=== PATIENT | female | born 1985 | race Caucasian/White ===

== ENCOUNTER → 2016-09-03 | Outpatient (CLI) | payer MEDICAID ==
[~2016-09-03] MED LIST: CARB200C3 PO; ESCI10TA PO; LORA0.5T PO; SULF-106 PO; TRAZ-28 PO; [UNRECOGNIZED DRUG - REMARK] PO
--- NOTE | 2016-09-03 13:26 | Diagnostic Imaging Report ---
INDICATION: Aspiration. PA and lateral views of the chest are obtained. COMPARISON: No previous study is available for comparison at this time. FINDINGS: Heart size and pulmonary vasculature are within normal limits, and the lungs are clear, bilaterally. IMPRESSION: Unremarkable chest. Report was called and faxed to ALEXANDRO Rao, @ 1:25 PM/[place]. Dictated by: Dictated on workstation # [id number]
== END ==
LOC: RAD 11:43
PROVIDERS: ATTEND Physician Assistant
DX: R05 Cough (principal)
CPT/HCPCS: 71020

== ENCOUNTER → 2016-09-03 | Outpatient (CLI) | payer MEDICAID ==
[2016-09-03 15:25] VITALS: BP 130/68
--- NOTE | 2016-09-03 15:25 | Urgent Care T Sheet Gen (E) ---
Intake General Temperature (Fahrenheit): 97.3 Pulse: 98 Blood Pressure Systolic: 130 Blood Pressure Diastolic: 68 Respirations: 20 SPO2: 96 Description of Symptoms patient presents with an acute on chronic cough. Patient's chronic cough started in Oct 2015. [facility] states she is a chronic aspirator. Has history of myasthenia gravis which affects her swallow. Sees an lumber sorter machine and a neurologist. Saw her lumber sorter machine on Aug 29 and her chest xray was normal. ok states that on Aug 30, the patient choked on some soup and has had an acute cough since. Patient complains of chest discomfort. No fever. Been taking Tylenol and Zyrtec. History of Present Illness Allergies: Coded Allergies: latex (Verified Allergy, Unknown, 02/25/14) Uncoded Allergies: ADHESIVES, TAPES (Allergy, Unknown, 02/25/14) PENICILLIN (Allergy, Unknown, 02/25/14) Home Meds Reported Medications Escitalopram Oxalate (Lexapro)10 Mg [id number] Mg PO DAILY 02/28/13 Pyridostigmine [place] (Mestinon)60 Mg Tab1 Tab PO QID 02/28/13 Carbamazepine 200 Mg Cpmp.[id number] Mg PO DAILY 02/28/13 Carbamazepine 200 Mg Cpmp.[id number] Mg PO AM 02/28/13 Respiratory Constitutional Symptoms: No syptoms reported EENTM: No symptoms reported Respiratory: CoughNo Short of breath, No Wheezing Cardiovascular: No symptoms reported Gastrointestinal/Abdominal: No symptoms reported All Other Systems Reviewed Remaining Systems: All other systems reviewed with negative findings Past Sjlzksk-Kwpvjx-Kosjrt Hx Surgeries/Hospitalizations Hospitalization/Surgery Hx: MENTAL RETARDATION, SEIZURES, ADHD, MYASTHENIA GRAVIS, TUBAL AND ABLATION, MOOD AND ANGER PROBLEMS. DEPRESSION Respiratory Respiratory History: None Cardiovascular Cardiovascular History: None Neuro/Muscular Comment: MYASTHENIA GRAVIS Reproductive System Sexually Transmitted Diseases: No Gastrointestinal GI/Endocrine History: None Diabetes Diabetes: No HEENT Impaired Vision: None Hearing Impaired: None Integumentary Integumentary History: Recent skin changes Comment: FALL, ABRASIONS, LACERATIONS Psychosocial Behavior Disorders: Other, See Comment Physical Exam Physical Exam General Appearance: WD/WN No apparent distress Eyes, Ears, Nose, Throat Ex: TMs normal Pharynx normal Other (clear nasal drainage) Neck Exam: SuppleNo Lymphadenopathy Respiratory Exam: Lungs clear (patient didn't cough much during exam.) Normal breath sounds Cardiovascular Exam: Regular rate, rhythm Progress/Orders Progress Note: Progress Note Chest xray was negative Departure Urgent Care Impression Impression: Primary Impression: Cough Departure Disposition: 01 HOME OR SELF-CARE Condition: Stable Referrals: BELKIS SILVA MD (PCP) Additional Instructions: Discussed xray results with kee. Told her it was a normal study. Kee was concerned she caused an aspiration pneumonia. Most likely a viral URI which is causing the acute on chronic cough. Rest. Fluids Tylenol or ibuprofen as needed F/U with PCP if no better Patient's guardian understands DC instructions. All questions were answered. End of report . JOHN CREWS Sep 03, 2016 15:25
== END ==
LOC: MHUC 11:12
PROVIDERS: ATTEND Physician Assistant
DX: R05 Cough (principal)
CPT/HCPCS: 99213

== ENCOUNTER 2016-11-29 13:00 | Outpatient (RCR) | payer MEDICAID ==
--- NOTE | 2016-11-07 11:24 | PT/OT/ST INITIAL EVALUATION ---
Department of Health and Human Services Form Approved [facility] Care Financing Administration OMB No. [id number] PLAN OF CARE/ASSESSMENT FOR OUTPATIENT REHABILITATION (Complete for Initial Claims Only) 1. PATIENT'S NAME Jonathan Spain 2. ACC # [id number] 3. HICN NA 4. PROVIDER NO. [id number] 5. TYPE: PT 6. PRIOR HOSPITALIZATION NA 7. PRIMARY DX Tension headaches 8. SECONDARY DX NA 9. ONSET DATE Approximately 6 months ago 10. REFERRAL DATE NA 11. SOC. DATE 11/06/2016 12. TIME OF EVAL 13:17 p.m. 12. REFERRING PHYSICIAN Bushra Alvarez PA-C 13. CHARGES/UNITS NA 14. G CODES NA 15. PRIOR LEVEL OF FUNCTION; PERTINENT HISTORY (Prior therapy results, reason for referral.) S: Prior to therapy, the patient and her [facility] grandmother did consent to today's evaluation and treatment. The patient is a 31-year-old female referred to physical therapy by Bushra Alvarez PA-C to address tension headaches. Overall health rating: The patient and grandmother do rate her overall and general health as fair. Mechanism of injury: The patient and grandmother states that the headaches came on approximately 6 months ago for unknown reasons. The headaches have made sleeping difficult and difficulty with concentration as well. The patient has been to see an eye doctor and this has been ruled out as a cause of the headaches. She does wear glasses for reading and writing. The patient states that the headaches are located all over her head and seem to move around, however, the most frequent area that the headaches are present is at the forehead region. The patient and grandmother do state that since she has reduced her Tylenol and possibility of rebound headaches, the headaches have decreased significantly. Prior level of function: Includes the patient being unlimited in function with no headaches. Current level of function: Currently the patient continues to have headaches present at least one time per day. She also has difficulty sleeping and concentrating on her coloring and reading. Therapy History: No previous physical therapy has been performed for this condition. No obstacles of delivery of care are observed. Pain level: Maximum pain level is 6 to 7/10. The patient describes the pain as a throbbing sensation. Aggravating factors: Include light. Relieving factors: Include closing her eyes. Diagnostic testing: No diagnostic tests have been performed at this time. Past medical history: Does include myasthenia gravis. Current medications: A list of medications has been provided and is included in the chart. Patient's Goal: The patient's goal for physical therapy is to be able to get rid of the headaches completely. 16. INITIAL ASSESSMENT/SAFETY PRECAUTIONS/MEDICAL COMPLICATIONS (Level of function at start of care. Be specific, use objective measures, list problems.) O: APPEARANCE AND OBSERVATION: The patient presents as a middle aged female in apparently healthy condition. She does present at physical therapy with rounded shoulders and a forward head, as well as anterior translation of bilateral shoulders. PALPATION: With palpation, the patient is tender to palpate and recreates headache with deep palpation of the suboccipital triangle. The cervical spine paraspinals additionally have increased tone and are tender to palpation. Upper trap and levator additionally have significant spasming present. SPECIAL TESTS: Cervical spine segmental mobility is within functional limits bilaterally with both PAs and side glides. OUTCOME ASSESSMENTS: Neck Disability Index which scored 32% disability. RANGE OF MOTION/FLEXIBILITY: Forward flexion of the cervical spine 38 degrees, extension 60 degrees, right side bend 45 degrees, and left side bend 34 degrees. Right rotation 78 degrees and left rotation 83 degrees. Upper endoscopy range of motion is within normal limits and grossly equal bilaterally. STRENGTH: Throughout bilateral upper extremities are grossly 4+/5 throughout. Postural strength is grossly 3/5 and cervical spine strength is 3/5. Right finance analyst strength is 49 pounds and left finance analyst strength is 44 pounds. TODAY'S TREATMENT: Following the initial evaluation ultrasound treatment was performed through bilateral cervical spine paraspinals, as well as upper trap and levator. Therapeutic exercise was then performed and issued as a home exercise program. The patient did report decreased pain following today's treatment. 17. INITIAL POC: (Specify procedures, modalities, short and buttermilk drier operator goals) A: The patient presents to physical therapy with diagnosis of tension headaches with resultant decreased left side bend, increased pain and headaches, decreased postural strength and decreased cervical spine strength, especially deep neck flexors. PROGNOSIS: This patient does have a good prognosis with regular therapy attendance and compliance with home exercise program. This patient is expected to benefit from physical therapy services in order to have increased active range of motion, increased strength for improved posture for a decrease or elimination of headaches. INFORMED CONSENT: The diagnosis, prognosis, treatment plan, risks and expected outcomes were discussed with the patient and the patient did agree to today's established plan of care. GOALS: 1. The patient to be independent and compliant with home exercise program in 1 week. 2. The patient with left side bend at least 45 degrees in 2 weeks to allow looking over her shoulder. 3. The patient with no reports of headache to allow sleeping at night in 4 weeks. 4. The patient with a Neck Disability Index no more than 15% limited in 4 weeks to allow returning to coloring and reading without limitations. P: Plan to treat the patient 2 times a week for 4 weeks in order to address tension headaches. Treatment to include modalities to decreased pain, inflammation and spasming. Manual therapy techniques as indicated. Therapeutic exercise targeting active range of motion and postural stabilization activities, and patient education and home exercise program to be advanced as warranted. 18. FREQUENCY 19. DURATION 20. FUNCTIONAL LEVEL (End of claim period) 21. PHYSICIAN SIGNATURE ? ON FILE OR ENTER HERE: 22. DATE: I certify the need for these services furnished under this plan of care and if for partial hospitalization. 23. CERTIFICATION FROM THROUGH FORM [id number]
== END 2016-12-03 16:10 | disposition home or self-care (01) ==
LOC: PT 13:00
PROVIDERS: ATTEND Physician Assistant Medical
DX: G44.209 Tension-type headache, unspecified, not intractable (principal)